=== PATIENT | female | born 1945 | race Caucasian/White ===

== ENCOUNTER → 2016-12-05 | Outpatient (CLI) | payer OTHER, MEDICARE | END | disposition home or self-care (01) | LOC: C.RDSM 12:04 | PROVIDERS: ATTEND Physical Medicine & Rehabilitation Sports Medicine | DX: M25.511 Pain in right shoulder (principal) ==

== ENCOUNTER → 2017-07-12 | Day surgery (SDC) | payer OTHER, MEDICARE ==
[2017-06-20 13:33] VITALS: Ht 147.3 cm; Wt 59.1 kg
[~2017-07-12] VITALS: Ht 147.3 cm; Wt 59.1 kg
[~2017-07-12] MED LIST: BUPIVACAINE 0.25% 2.5MG/ML PF 10 ML VIAL ONE; DORZ2SOL20 OPB; FERR1TAB23 PO; FURO-85 PO; IOPAMIDOL INJ 61% 15 ML VIAL ONE; LATA0.5S OPB; LEVO75TA5 PO; LIDOCAINE HCL 1% MPF 5 ML VIAL ONE; PROB1TAB16 PO; VITAMIN B12 INJ
--- NOTE | 2017-07-12 14:11 | History & Physical Bridge - [place] ---
H&P Re-Evaluation Bridge Note: I have examined the patient, reviewed the History & Physical and in the interval since the performance of the History & Physical I have noted the following changes of clinical significance: No changes noted
--- NOTE | 2017-07-12 14:38 | Discharge Instructions ---
Discharge Instructions Date of Service Jul 12, 2017. Visit Reason for Visit: Sacroiliitis Discharge Discharge Diagnosis / Problem: low back pain Discharge Goals Goal(s): Decrease discomfort, Improve function Activity Recommendations Activity Limitations: resume your previous activity Anesthesia . Post Anesthesia Instructions: If you have had General Anesthesia or IV Sedation: * Do not drive today. * Resume driving when surgeon permits. * Do not make important decisions or sign legal documents today. * Call surgeon for: 1. Temperature elevations greater than 101 degrees F. 2. Uncontrollable pain. 3. Excessive bleeding. 4. Persistent nausea and vomiting. 5. Medication intolerance (nausea, vomiting or rash). * For nausea and vomiting use only clear liquids such as: tea, soda, bouillon until nausea subsides, then gradually increase diet as tolerated. * If you have any concerns or questions, call your surgeon's office. If physician is unavailable and it is an emergency, call 911 or go to the nearest emergency room. . Diet Recommendations Recommended Home Diet: resume previous diet Procedures Procedures Performed: Left Sacroiliac Joint Injection Pending Studies Studies pending at discharge: no Medical Emergencies . Who to Call and When: Medical Emergencies: If at any time you feel your situation is an emergency, please call 911 immediately. . Non-Emergent Contact Non-Emergency issues call your: Specialist . . "Provider Documentation" section prepared by Jian Ureña. .
--- NOTE | 2017-07-12 14:53 | OPERATIVE REPORT ---
DATE OF OPERATION: 07/12/2017 PREOPERATIVE DIAGNOSIS: Left sacroiliitis. POSTOPERATIVE DIAGNOSIS: Same. PROCEDURE: Left sacroiliac joint injection under fluoroscopic guidance. INDICATIONS: The patient is a 71-year-old white female who has left sacroiliac pain. She presents today for an injection as she has not responded to conservative measures for the pain. PHYSICAL EXAMINATION: GENERAL: Pleasant female seated comfortably. MUSCULOSKELETAL: Lumbar paraspinal muscles are nontender. She has point tenderness to palpation of the SI joint, worse with extension, worse with a Yasmin maneuver and a compression maneuver. CONSENT: Verbal and written consent was obtained from the patient. Risks and benefits were reviewed. Risks include but are not limited to abscess and allergic reaction. She wishes to proceed. PROCEDURE: The patient was taken back to the special procedures room of the [facility] where she was maintained in a prone position. Backside was cleansed with Betadine x3 and a dry sterile dressing was applied. Fluoroscope was used to identify the left SI joint and the overlying skin was anesthetized with 2.5 mL of lidocaine 1% with a 25-gauge 1.5-inch needle. A 25-gauge 3.5-inch spinal needle was then directed under fluoroscopic guidance into the joint. Isovue-300 contrast 0.25 mL was injected, which appeared to be in the joint, but it was on the overlying bone section. The needle was then redirected more inferiorly, reinjected with Isovue-300 contrast 0.25 mL showed intraarticular uptake. She then underwent injection after negative aspiration of 40 mg of Depo-Medrol and 1.5 mL of bupivacaine 0.25%. Injection was well tolerated. DISPOSITION: 1. The patient was taken out into the discharge recovery area where she will be discharged home once discharge criteria have been met. 2. Follow up in the [facility] office in 4 weeks' time. I attest to the content of the Intraoperative Record and any orders documented therein. Any exception s are noted below.
[2017-07-12 15:00] VITALS: BP 147/85; PULSE 52; TEMP 36.9; O2SAT 100
== END | disposition home or self-care (01) ==
LOC: X.SURG 13:12
PROVIDERS: ATTEND Physical Medicine & Rehabilitation
DX: M46.1 Sacroiliitis, not elsewhere classified (principal)

== ENCOUNTER → 2017-08-01 | Day surgery (SDC) | payer OTHER, MEDICARE ==
[~2017-08-01] VITALS: Ht 149.9 cm; Wt 59.0 kg
[~2017-08-01] MED LIST changes: +ASCO10003 PO; -BUPIVACAINE 0.25% 2.5MG/ML PF 10 ML VIAL ONE; -IOPAMIDOL INJ 61% 15 ML VIAL ONE; -LIDOCAINE HCL 1% MPF 5 ML VIAL ONE; +MULT-506 PO; +TRAM-10 PO; +vitamin d PO
[2017-08-01 09:42] VITALS: BP 138/72; PULSE 58; TEMP 36.6; O2SAT 100; Ht 149.9 cm; Wt 59.0 kg
[2017-08-01] MEDS: ZOLEDRONIC ACID INJ 5 MG in EMPTY BAG 0 ML IV SCH ×2 (09:48→10:09)
== END | disposition home or self-care (01) ==
LOC: C.MTU 09:30
PROVIDERS: ATTEND Internal Medicine
DX: M81.0 Age-related osteoporosis without current pathological fracture (principal)

== ENCOUNTER → 2017-09-05 | Outpatient (CLI) | payer OTHER, MEDICARE | END | disposition home or self-care (01) | LOC: C.RDSM 15:06 | PROVIDERS: ATTEND Physical Medicine & Rehabilitation Sports Medicine | DX: Z96.651 Presence of right artificial knee joint (principal) ==